=== PATIENT | female | born 1950 | race Caucasian/White ===

== ENCOUNTER 2019-03-10 05:22 | Inpatient (IN) ==
--- NOTE | 2019-02-06 12:32 | Anesthesiology Consultation ---
Date of Service February 06, 2019 Assessment & Plan (1) Encounter for pre-operative examination: Chart Review Chart Review: Acceptable Risk for Surgery (pending preop testing (labs, EKG, CXR)) and Patient seen in Pre Admission Testing Teaching & Discussion Pre-Anesthesia Teaching/Discussion Notes: Instructed NPO after midnight before surgery,except medications with 15 cc of water. Medication instructions provided according to the PAT guidelines. History Surgery Operation Date: 03/10/19 08:50 Proposed Procedures p Right Total Hip Replacement - Chong Wood MD Height/Weight Height: 5 ft 1 in Weight: 77.1 kg Allergies Allergy/AdvReac Type Severity Reaction Status Date / Time No Known Allergies Allergy Unverified 02/06/19 12:39 Medications Home Medications Medication Instructions Recorded Confirmed Last Taken Cbd Oil 1 dose DAILY 01/30/19 01/30/19 Unknown Formula Italo 1 dose DAILY 01/30/19 01/30/19 Unknown atenolol 25 mg PO QPM 01/30/19 01/30/19 01/29/19 calcium carbonate-vitamin D3 1 cap PO QPM 01/30/19 01/30/19 01/29/19 [Calcium 600 + D(3)] celecoxib [Celebrex] 200 mg PO QAM 01/30/19 01/30/19 01/30/19 cranberry 500 mg PO BID 01/30/19 01/30/19 Unknown fluticasone propionate [Flonase 2 spray INTRANASAL QAM 01/30/19 01/30/19 01/30/19 Allergy Relief] [id number]-kde-D-isac-herbal 21 1 tab PO QAM 01/30/19 01/30/19 01/30/19 [Glucosamine-MSM Complex] hydroxyzine HCl 50 mg PO HS PRN 01/30/19 01/30/19 Unknown ibuprofen 600 mg PO UD PRN 01/30/19 01/30/19 Unknown loratadine 10 mg PO UD PRN 01/30/19 01/30/19 Unknown lutein 25 mg PO DAILY 01/30/19 01/30/19 Unknown multivitamin 1 cap PO QAM 01/30/19 01/30/19 Unknown paroxetine HCl 10 mg PO QPM 01/30/19 01/30/19 01/29/19 psyllium seed (sugar) [Metamucil 1 tbsp PO UD PRN 01/30/19 01/30/19 Unknown (sugar)] red yeast rice 600 mg PO BID 01/30/19 01/30/19 Unknown turmeric 500 mg PO BID 01/30/19 01/30/19 Unknown Past Medical History Medical History Arthritis cervical History of recurrent UTI (urinary tract infection) recent UTI; symptoms now resolved on abx (to be completed prior to surgery) Hot flashes Hyperlipidemia Hypertension Obesity Exercise / Class Metabolic Activity III < 4 Walking/Shop/Light housework Past Surgical History Surgical History History of colonoscopy History of hammer toe correction History of hernia surgery History of lumpectomy of left breast History of lumpectomy of right breast History of total left hip replacement History of uterine fibroid S/P EXCISION Status post club foot correction at X3 Past Anesthesia History No Hx of Anesthesia Complications and No Family Hx of Anesthesia Complications History of PONV No Hx of PONV and No Hx of Motion Sickness Social History Smoking Status: Never smoker Do You Dip or Chew Tobacco: No Hx Alcohol Use: No Hx Substance Use: Yes Last Used Substance Other:: OTC CBD oil PRN arthritis Review of Systems Patient denies chest pain, shortness of breath, reflux, cough, wheezing, palpitations. Physical Exam Vital Signs VITALS BP 143/84 P 70 TEMP 97.4 SP02 99%RA RESP 18 PHYSICAL Full neck and c-spine range of motion. Full TMJ range of motion. TMD 3 finger breaths Mallampati Score 2 Dentition: intact, upper front crown Lungs: clear throughout to auscultation Cardiac: regular rate and rhythm, no murmurs noted Spine: normal Carotid arteries: negative bruit Extremities: no edema Testing Laboratory Results 01/22/19 SODIUM 134 POTASSIUM 4.7 CHLORIDE 96 CO2 26 BUN 8 CREATININE 0.7 GLUCOSE 87
--- NOTE | 2019-02-06 12:36 | PAT Medication Instructions ---
Medication Instructions Date of Service February 06, 2019 Home Medications Cbd Oil 1 dose DAILY Formula Italo 1 dose DAILY atenolol 25 mg PO QPM calcium carbonate-vitamin D3 [Calcium 600 + D(3)] 1 cap PO QPM celecoxib [Celebrex] 200 mg PO QAM cranberry 500 mg PO BID fluticasone propionate [Flonase Allergy Relief] 2 spray INTRANASAL QAM hngijsfrk-rwc-B-isac-herbal 21 [Glucosamine-MSM Complex] 1 tab PO QAM hydroxyzine HCl 50 mg PO HS PRN ibuprofen 600 mg PO UD PRN loratadine 10 mg PO UD PRN lutein 25 mg PO DAILY multivitamin 1 cap PO QAM paroxetine HCl 10 mg PO QPM psyllium seed (sugar) [Metamucil (sugar)] 1 tbsp PO UD PRN red yeast rice 600 mg PO BID turmeric 500 mg PO BID ASK your surgeon for instructions celecoxib [Celebrex] 200 mg PO QAM ibuprofen 600 mg PO UD PRN STOP taking 2 weeks before surgery (or as soon as possible if surgery is within 2 weeks) cranberry 500 mg PO BID qxcoplztn-vfd-T-isac-herbal 21 [Glucosamine-MSM Complex] 1 tab PO QAM lutein 25 mg PO DAILY red yeast rice 600 mg PO BID turmeric 500 mg PO BID DO NOT take the morning of surgery Cbd Oil 1 dose DAILY Formula Italo 1 dose DAILY loratadine 10 mg PO UD PRN multivitamin 1 cap PO QAM Take morning of surgery With a small sip of water, OTHERWISE NOTHING TO EAT OR DRINK AFTER MIDNIGHT: fluticasone propionate [Flonase Allergy Relief] 2 spray INTRANASAL QAM Take evening before surgery atenolol 25 mg PO QPM calcium carbonate-vitamin D3 [Calcium 600 + D(3)] 1 cap PO QPM hydroxyzine HCl 50 mg PO HS PRN (if needed) paroxetine HCl 10 mg PO QPM Other Notes If you have any questions please call us at [phone] or [phone] or [phone] or [phone]
--- NOTE | 2019-02-06 13:09 | XRay Report ---
XR chest Pre-admission PA/Lat CLINICAL HISTORY: PAT preoperative evaluation COMPARISON STUDY: No previous studies for comparison. FINDINGS: The bones soft tissues and hemidiaphragms are normal. The cardiomediastinal silhouette is n ormal. The lungs are clear. The pulmonary vasculature is normal. IMPRESSION: Negative chest. The above report was generated using voice recognition software. It may contain grammatical, syntax or spelling errors. Electronically signed by: Isai Lewis M.D. 02/06/2019 1:08 PM
[2019-02-06 14:05] LABS: Basophils # (auto) 0.04 K/uL (0-0.2); Basophils % (auto) 0.6 %; Eosinophils # (auto) 0.07 K/uL (0-0.5); Eosinophils % (auto) 1.1 %; Hematocrit (blood only) 39.3 % (37-47); Hemoglobin 13.3 g/dL (12.0-16.0); Immature Granulocytes # (auto) 0.01 K/uL (0.00-0.02); Immature Granulocytes % (auto) 0.2 %; Lymphocytes # (auto) 1.81 K/uL (1.2-3.4); Lymphocytes % (auto) 28.8 %; Mean Corpuscular Hemoglobin 29.7 pg (25-34); Mean Corpuscular Hgb Conc 33.8 g/dL (32-36); Mean Corpuscular Volume 87.7 fL (80-100); Mean Platelet Volume 10.1 fL (7.4-10.4); Monocytes # (auto) 0.64 K/uL (0.11-0.59); Monocytes % (auto) 10.2 %; Neutrophils # (auto) 3.71 K/uL (1.4-6.5); Neutrophils % (auto) 59.1 %; Platelet Count 188 K/uL (130-400); RDW Coefficient of Variation 14.4 % (11.5-14.5); RDW Standard Deviation 46.3 fL (36.4-46.3); Red Blood Count 4.48 M/uL (4.2-5.4); White Blood Count 6.28 K/uL (4.8-10.8)
[2019-02-06 14:37] LABS: Partial Thromboplastin Time 26.3 Seconds (21.0-31.0); Prothrombin Time 10.6 Seconds (9.0-12.0)
--- NOTE | 2019-03-05 21:45 | History and Physical Report ---
DATE OF ADMISSION: 03/10/2019 CHIEF COMPLAINT: Persistent right hip pain and discomfort. HISTORY OF PRESENT ILLNESS: The patient is a 68-year-old female who presents for surgical treatment of her right hip. She has a history of left hip replacement done in 2009. She has done pretty well from this. She continues to be bothered by right hip pain and discomfort. She describes it has gotten worse over time. She describes groin pain, thigh pain. It radiates down from her hip area to her thigh. The more she walks, the more it hurts. It started to really limiting her activities. She would like to do more traveling, but unable to do so due to pain. X-rays show progressive hip arthritis and she elected to proceed with surgical treatment. PAST MEDICAL HISTORY: 1. Hypertension. 2. Asthma. 3. Chronic back pain. 4. Mild obesity with BMI of 32. PAST SURGICAL HISTORY: Includes: 1. Club foot surgery. 2. Fibroids. 3. Herniorrhaphy. 4. Breast surgery/benign. 5. Left total hip replacement done on 02/01/2010. ALLERGIES: None. CURRENT MEDICATIONS: Include 1. Hydroxyzine. 2. Atenolol 25 mg. 3. Paroxetine. SOCIAL HISTORY: A 68-year-old female patient from [place]. She is . Does not smoke. No significant alcohol intake. FAMILY HISTORY: Noncontributory. REVIEW OF HISTORY: Negative for diabetes, neurologic problems, vascular problems, bleeding disorders. She does have some chronic back pain. No chest pain or shortness of breath. No history of DVT or PE. No known bleeding problems. PHYSICAL EXAMINATION: GENERAL: Shows a healthy, pleasant middle-aged female who looks to be in pretty good health. HEENT: Benign. NECK: Supple, no lymphadenopathy. LUNGS: Clear to auscultation. HEART: Regular rate and rhythm. ABDOMEN: Soft, nontender, nondistended. EXTREMITIES: Grossly neurovascularly intact except as follows. Examination of the right hip reveals the patient walks with just a slight bit of a limp. She has about 0.5 cm short on the right compared to the left. She can internally rotate to about 20 degrees with pain. Negative straight leg raise. She is neurologically intact. X-RAYS: Of the right hip were reviewed. Shows advanced right hip DJD. She has complete loss of her superior joint space. This has changed significantly over the past year. ASSESSMENT: A 68-year-old female 10 years out from a left hip replacement with advanced right hip degenerative joint disease. It has gotten significantly worse over the past year, both clinically and radiographically. She would like to have her hip fixed. PLAN: We will take her to the operating room and do right total hip replacement. The risks and benefits of this procedure were explained to the patient including but not limited to DVT, PE, , infection, neurological injury, vascular injury, bleeding problem, pain, limited range of motion, stiffness, failure to relieve symptoms, incomplete relief of symptoms, need for further surgery in future, fracture, leg length inequality, nerve palsy, incomplete relief of symptoms, etc. The patient understands and desires to proceed. Informed consent was obtained. She is planning to be discharged home using [facility] home health program.
[2019-03-10] MEDS ORDERED: METOCLOPRAMIDE HCL 10 MG TABLET PO SCH (06:00)
[2019-03-10] MEDS ORDERED: LR 60ML/HR IV SCH (06:00)
[2019-03-10] MEDS ORDERED: GABAPENTIN 300 MG CAP PO SCH (06:00)
[2019-03-10] MEDS ORDERED: CEFAZOLIN 2000MG 2,000 MG/15 ML SYR IV SCH (06:00)
[2019-03-10] MEDS ORDERED: FAMOTIDINE 20 MG TAB PO SCH (06:00)
[2019-03-10] MEDS ORDERED: ACETAMINOPHEN 500 MG TAB PO SCH (06:00)
[2019-03-10] MEDS ORDERED: LR 500ML BOLUS, THEN 15ML/HR IV SCH (06:00)
[2019-03-10] MEDS ORDERED: BUPIVACAINE 0.5 % 5 MG/1 ML PF 10ML VIAL ONE (06:24)
[2019-03-10] MEDS ORDERED: MIDAZOLAM HCL 1 MG/ML 2ML VIAL ONE ×3 (06:33→07:24)
[2019-03-10] MEDS ORDERED: fentaNYL citrate 100 MCG/2 ML VIAL ONE (06:33)
[2019-03-10] MEDS ORDERED: MoRPHine SULFATE PF 1 MG/ML 10 ML AMP/VIAL ONE (06:33)
--- NOTE | 2019-03-10 06:54 | History & Physical Bridge Note ---
Date of Service March 10, 2019 History & Physical Bridge Note I have examined the patient, reviewed the History & Physical and in the interval since the performance of the History & Physical I have noted the following changes of clinical significance: no changes noted
[2019-03-10] MEDS ORDERED: TRANEXAMIC ACID 1,000 MG in 0.9 % SODIUM CHLORIDE 100 ML IV STA (07:07)
[2019-03-10] MEDS ORDERED: ONDANSETRON INJ 2 MG/ML 2 ML VIAL IV PRN ×2 (07:17→10:00)
[2019-03-10] MEDS ORDERED: PHENYLEPHRINE 100MCG/ML 5ML SYR IV PRN (07:17)
[2019-03-10] MEDS ORDERED: LABETALOL HCL IV 5 MG/ML 20ML IV PRN (07:17)
[2019-03-10] MEDS ORDERED: ATROPINE SULFATE 0.1 MG/ML 10ML SYR IV PRN (07:17)
[2019-03-10] MEDS ORDERED: fentaNYL citrate 100 MCG/2 ML VIAL IV PRN (07:17)
[2019-03-10] MEDS ORDERED: ePHEDrine sulfate 50 MG/ML AMP IV PRN (07:17)
[2019-03-10] MEDS ORDERED: PROPOFOL IV EMULSION 10 MG/ML 20 ML VIAL IV ONE (07:25)
[2019-03-10] MEDS ORDERED: KETAMINE HCL INJ 50 MG/ML 10 ML VIAL ONE (07:31)
[2019-03-10] MEDS: BACITRACIN INJ 50,000 UNIT VIAL ONE (07:43)
[2019-03-10] MEDS: BUPIVACAINE/EPINEPHRINE 0.5% MPF 1:200,000 30 ML VIAL ONE (07:44)
[2019-03-10] MEDS ORDERED: PHENYLEPHRINE HCL 10 MG/ML VIAL ONE (07:51)
--- NOTE | 2019-03-10 08:42 | Post Operative Brief Note ---
PG Immediate Post Op with CF Date of Surgery March 10, 2019 Pre & Post Diagnosis Operation Date: 03/10/19 07:00 Pre-Op Diagnosis: Right Hip Advanced Degenerative Joint Disease Post-Op Diagnosis: Right Hip Advanced Degenerative Joint Disease Procedure Operation Date: 03/10/19 07:00 Actual Procedures p Right Total Hip Arthroplasty--Uncemented(Right) - Chong Wood MD Surgeon Chong Wood MD Vrt Mechanic Aisha, PAC Estimated Blood Loss 200 Findings Consistent with Post-Op Diagnosis Fluids 1000 cc Specimens Specimen Description: A. Right Femoral Head Drains Carney Catheter (A 16 Ecu[place]orean carney catheter was inserted by LLOYD Weaver, without difficulty, clear yellow urine obtained, output to be monitored by Anesthesia.) Anesthesia Type Spinal MAC Complications none Disposition Accompanied Patient To Recovery: Yes Disposition: Recovery Room
--- NOTE | 2019-03-10 09:28 | Anesthesiology Progress Note ---
Date of Service March 10, 2019 Anesthesia Post Procedure Vital Signs Vital Signs: Temp Pulse Pulse Resp BP Pulse Ox 03/10/19 09:20 67 12 112/60 100 03/10/19 09:10 67 12 121/66 100 03/10/19 09:00 73 12 107/62 100 03/10/19 08:50 71 12 122/65 100 03/10/19 08:43 36.0 C L 73 12 118/51 L 95 03/10/19 05:39 36.4 C L 73 18 162/82 H 99 Transfer of Care Handoff Completed per policy Notes Mental Status: alert / awake / arousable Patient Amnestic to Procedure: Yes Nausea / Vomiting: adequately controlled Pain: adequately controlled Airway Patency, RR, SpO2: stable & adequate BP & HR: stable & adequate Hydration State: stable & adequate Neuraxial Anesthesia: was administered and sensory block is resolving Anesthetic Complications: no major complications apparent and Pt Satisfied with anesthetic care
--- NOTE | 2019-03-10 09:36 | Operative Report ---
DATE OF OPERATION: 03/10/2019 SURGEON: Chong Wood MD. BUSHING PRESS OPERATOR: LLOYD Peralta. PREOPERATIVE DIAGNOSIS: Right hip degenerative joint disease. POSTOPERATIVE DIAGNOSIS: Right hip degenerative joint disease. PROCEDURE PERFORMED: Right uncemented ceramic on highly cross-linked polyethylene total hip arthroplasty. COMPLICATIONS: None. ESTIMATED BLOOD LOSS: 200 mL. FLUID REPLACEMENT: 1000 mL of crystalloid fluid replacement. ANESTHESIA: Spinal. DRAINS: None. SPECIMENS: Right femoral head sent for pathology. OPERATIVE INDICATIONS: The patient is a 68-year-old female who is well known to me from previous left hip replacement done 9 years ago. Over the past year, she has developed increased pain and discomfort in her right hip. She has had a couple episodes where she had trouble even getting around. Symptoms kind of waxed and waned. X-rays over the past year showed progressive hip arthritis with loss of her joint space. She elected to proceed with surgical treatment. OPERATIVE FINDINGS: Revealed advanced right hip DJD. She had extensive cartilage loss in the femoral head, but not much in the way of osteophytes. Moderate-sized joint effusion. Moderate synovitis. OPERATIVE IMPLANTS: Consisted of: 1. Biomet G7 size 50 mm acetabular shell. 2. A 6.5 cancellous acetabular screws, one at 35 mm length and one at 25 mm length. 3. An apex hole eliminator. 4. A highly cross-linked polyethylene liner with 50 mm outer diameter and 32 mm inner diameter. 5. DePuy Corail size 10 KLA femoral stem. 6. A +5/32 mm ceramic articular ball. OPERATIVE PROCEDURE: The patient was taken to the operating room, identified and placed on the operating table in supine position. All contact areas were appropriately padded. IV antibiotics were provided by anesthesia team. A spinal anesthetic had been implemented in the holding area. Ruff catheter was placed in sterile fashion. The patient was then placed in the left lateral decubitus position. An axillary roll was placed. Stlberg hip positioner was used for positioning. The right hip and leg were then prepped and draped in usual sterile fashion. A posterolateral approach to the right hip was then performed through a curvilinear incision centered over the greater trochanter. Subcutaneous tissue envelope was quite thick. Sharp dissection was carried through the subcutaneous tissues down to the level of the IT band and gluteal fascia. The IT band and gluteal fascia were then incised longitudinally in line with skin incision. The underlying greater trochanteric bursa was excised. The piriformis and external rotators were tagged and taken off the posterior aspect of the hip joint capsule. Great care was taken throughout the procedure to protect the sciatic nerve at all times. Posterior capsulotomy was then performed leaving a large flap for later repair. Hip was internally rotated and dislocated. Femoral neck osteotomy cut was made with the final cut about 10 mm above the lesser trochanter. Femoral head was removed and sent for pathology. The femur was retracted anteriorly. Attention was then drawn to the acetabulum. The acetabular labrum was excised. The pulvinar fat was excised. Sequential reaming of the acetabulum was then performed beginning with a size 43 and progressing up to 49. I did just touch the outer edge with a 50 reamer. I then went to place a 50 mm cup. I could not get it to seat the whole way down to good interference fit. Therefore, I reamed again with a 49 reamer and then placed the cup. We got good interference fit. I placed this in about 40 degrees of lateral opening and 20 degrees of anteversion. It was fixed with two 6.5 cancellous acetabular screws. There were no osteophytes to remove. A trial liner was placed. Attention was then drawn to the femur. The proximal femur was entered with cookie cutter followed by canal finder. I broached beginning with a size 8 and progressed to a 10. I could not quite get the 10 down to the calcar cut. We got good fit with this. It had good rotational stability. I then trialed the hip. I tried both the standard and the KLA stem. I felt the standard stem may have lengthened her a bit, so we used the KLA stem in order to maximize stability and soft tissue tension without lengthening her leg. I used a +5 articular ball. The hip was fully stable in full extension and external rotation and flexion to 90 degrees, internal rotation to 60 plus degrees. I elected to place these implants. All trial implants were removed. An apex hole eliminator was placed. A highly cross-linked polyethylene liner was placed. A DePuy Corail size 10 KLA femoral stem was impacted in position. We left this about 2 mm proud. The +5/32 mm ceramic articular ball was placed. Hip was located and once again found to be stable. Attention was then drawn toward closing. The wound was irrigated with copious amounts of pulsatile lavage solution. I did inject locally with 60 mL of 0.5% Marcaine with epinephrine. The posterior capsule and external rotators were then repaired through drill holes in the posterior trochanter with #2 Ti-Cron suture. The IT band and gluteal fascia were then closed with #1 PDS suture in running fashion. Subcutaneous tissues were closed in 2 layers, the deep layer with #2 Vicryl suture and subcutaneous tissue with 2-0 Dexon suture in a buried interrupted fashion. Skin was closed with skin august. Leg was then cleaned, dried and a sterile dressing of Xeroform, 4 x 4, sterile ABD pad and foam tape was applied. The patient was then transferred to the recovery room in stable condition. The patient tolerated the procedure well with no complications. All needle and sponge counts were correct at the end of the operation. I attest to the content of the Intraoperative Record and any orders documented therein. Any exception s are noted below.
--- NOTE | 2019-03-10 09:51 | XRay Report ---
SINGLE VIEW PELVIS; 2 VIEWS RIGHT HIP CLINICAL HISTORY: Postoperative examination. FINDINGS: An AP portable view of the hips and pelvis with AP and crosstable lateral portable view of the right hip are obtained. A bipolar right hip arthroplasty is in near-anatomic alignment. At least 2 cortical lag screws transfix the acetabular cup. No acute fracture is identified. There are expecte d postoperative changes overlying the right hip including skin clips, subcutaneous gas, and soft tiss ue swelling. A left hip arthroplasty is also in place. IMPRESSION: Expected postoperative findings status post right hip arthroplasty. No acute fracture is seen. Electronically signed by: Bright Dejesus M.D. 03/10/2019 9:50 AM
[2019-03-10] MEDS ORDERED: bisacodyL 10 MG SUPP PR PRN (10:00)
[2019-03-10] MEDS ORDERED: LORATADINE 10 MG TAB PO PRN (10:00)
[2019-03-10] MEDS ORDERED: LUTEIN 25 MG PO SCH (10:00)
[2019-03-10] MEDS ORDERED: NON-FORMULARY MEDICATION (Turmeric 500 MG) PO SCH (10:00)
[2019-03-10] MEDS ORDERED: ALUMINUM/MAGNESIUM SUSP 30 ML UDC PO PRN (10:00)
[2019-03-10] MEDS ORDERED: NON-FORMULARY MEDICATION (Red Yeast Rice 600 MG) PO SCH (10:00)
[2019-03-10] MEDS ORDERED: NON-FORMULARY MEDICATION (Cranberry 500 MG) PO SCH (10:00)
[2019-03-10] MEDS ORDERED: NALOXONE HCL 0.4 MG/1 ML VIAL/CARP IV PRN (10:00)
[2019-03-10] MEDS ORDERED: METOCLOPRAMIDE HCL INJ 5 MG/ML 2 ML VIAL IV PRN (10:00)
[2019-03-10] MEDS ORDERED: [UNRECOGNIZED DRUG - OTHER] SCH (10:00)
[2019-03-10] MEDS ORDERED: NON-FORMULARY MEDICATION (Multivitamin 1 CAP) PO SCH (10:00)
[2019-03-10] MEDS ORDERED: NON-FORMULARY MEDICATION (Cbd Oil 1 EA) SCH (10:00)
[2019-03-10] MEDS ORDERED: [UNRECOGNIZED DRUG - OTHER] PO SCH (10:00)
[2019-03-10] MEDS ORDERED: PSYLLIUM 58.6% POWDER PACKET PO PRN (10:00)
[2019-03-10] MEDS ORDERED: MAGNESIUM HYDROXIDE SUSP 30 ML UDC PO PRN (10:00)
[2019-03-10] MEDS ORDERED: HYDROmorphone INJ 0.5 MG/0.5 ML SYR IV PRN (10:00)
[2019-03-10] MEDS: DOCUSATE SODIUM 100 MG CAP PO SCH ×2 (11:13→20:42)
[2019-03-10] MEDS: SODIUM CHLORIDE 0.9% 1000ML 1,000 ML IV SCH ×2 (11:13→23:14)
[2019-03-10] MEDS: FLUTICASONE PROPIONATE NA SPR 16 GM BTL SCH (11:14)
[2019-03-10] MEDS: ASPIRIN 81 MG ECTAB PO SCH ×2 (11:14→20:42)
[2019-03-10] MEDS: MULTIVITAMIN TAB PO SCH (11:15)
[2019-03-10] MEDS: CEFAZOLIN 1000MG 1,000 MG/7.5 ML SYR IV SCH ×2 (11:16→19:37)
[2019-03-10] MEDS: KETOROLAC TROMETHAMINE 15 MG/ML VIAL IV SCH ×3 (11:23→21:17)
[2019-03-10] MEDS: ACETAMINOPHEN 500 MG TAB PO SCH ×2 (13:57→21:17)
--- NOTE | 2019-03-10 13:58 | Progress Note ---
DATE: 03/10/2019 SUBJECTIVE: A 68-year-old female postop from a right hip replacement. She is doing pretty well. Rates her pain at about 1. No chest pain or shortness of breath. Not feeling dizzy or lightheaded. OBJECTIVE: VITAL SIGNS: Temperature 37.7. Vital signs stable. GENERAL: Shows a pleasant, middle-aged female. She is sitting up in bed and talking to her son and looks pretty comfortable. LUNGS: Clear to auscultation. HEART: Has a regular rate and rhythm. ABDOMEN: Soft, nontender, nondistended. EXTREMITIES: Grossly neurovascularly intact except as follows: Examination of the right leg reveals leg lengths to be equal. Hip is located. She can dorsiflex and plantarflex her foot appropriately. Dressing is clean, dry and intact. She is neurologically intact. X-RAYS: X-ray of the right hip from recovery room is reviewed. It shows right uncemented total hip arthroplasty. Components looked to be in good position. No signs of problems. ASSESSMENT: A 68-year-old female postoperative from a right total hip replacement, doing well. Her hip is located. Pain is controlled. She is neurologically intact. PLAN: 1. DVT prophylaxis including thigh-high TEDs, SCDs, and aspirin twice a day. 2. PT/OT. Weight bear as tolerated. Right total hip protocol. 3. Pain control, doing pretty well with current pain regimen. 4. IV antibiotics x24 hours. 5. Disposition: Plan to discharge to home with some home health once adequately recovered and stable.
[2019-03-10] MEDS ORDERED: TRANEXAMIC ACID 1,000 MG in 0.9 % SODIUM CHLORIDE 100 ML IV SCH (15:00)
[2019-03-10] MEDS ORDERED: INFLUENZA ADMINISTRATION CHARGE ONE (15:15)
[2019-03-10] MEDS ORDERED: INFLUENZA VACCINE HIGH DOSE 65+ 0.5 ML SYR IM ONE (15:15)
[2019-03-10] MEDS: ASCORBIC ACID 500 MG TAB PO SCH (18:13)
[2019-03-10] MEDS: FERROUS GLUCONATE 324 MG TAB PO SCH (18:13)
[2019-03-10] MEDS: ATENOLOL 25 MG TABLET PO SCH (20:42)
[2019-03-10] MEDS: SENNA 8.6 MG TAB PO SCH (20:42)
[2019-03-10] MEDS: CALCIUM 600MG + VIT D 400 IU TAB PO SCH (20:43)
[2019-03-10] MEDS: PARoxetine HCl 10 MG TAB PO SCH (20:43)
[2019-03-10] MEDS: TRAMADOL HCL 50 MG TABLET PO PRN (21:43)
[2019-03-11] MEDS: TRAMADOL HCL 50 MG TABLET PO PRN ×3 (03:26→17:44)
[2019-03-11] MEDS: ACETAMINOPHEN 500 MG TAB PO SCH ×3 (05:03→21:27)
[2019-03-11] MEDS: KETOROLAC TROMETHAMINE 15 MG/ML VIAL IV SCH ×4 (05:03→21:25)
[2019-03-11 06:01] LABS: Basophils # (auto) 0.03 K/uL (0-0.2); Basophils % (auto) 0.5 %; Eosinophils # (auto) 0.03 K/uL (0-0.5); Eosinophils % (auto) 0.5 %; Hematocrit (blood only) 33.3 % (37-47); Hemoglobin 11.1 g/dL (12.0-16.0); Immature Granulocytes # (auto) 0.01 K/uL (0.00-0.02); Immature Granulocytes % (auto) 0.2 %; Lymphocytes # (auto) 1.22 K/uL (1.2-3.4); Lymphocytes % (auto) 20.8 %; Mean Corpuscular Hemoglobin 29.8 pg (25-34); Mean Corpuscular Hgb Conc 33.3 g/dL (32-36); Mean Corpuscular Volume 89.3 fL (80-100); Mean Platelet Volume 9.6 fL (7.4-10.4); Monocytes # (auto) 0.77 K/uL (0.11-0.59); Monocytes % (auto) 13.1 %; Neutrophils % (auto) 64.9 %; Platelet Count 116 K/uL (130-400); RDW Coefficient of Variation 14.4 % (11.5-14.5); RDW Standard Deviation 47.2 fL (36.4-46.3); Red Blood Count 3.73 M/uL (4.2-5.4); White Blood Count 5.86 K/uL (4.8-10.8)
[2019-03-11 06:36] LABS: BUN Creatinine Ratio 15.9 (10-20); Calcium 8.5 mg/dl (8.5-10.1); Creatinine Clr Calc Pharmacy 76.4 ml/min; Est GFR (African American) 104.8; Est GFR (Non-African American) 90.4; Potassium 3.9 mmol/L (3.5-5.1)
[2019-03-11] MEDS: ASCORBIC ACID 500 MG TAB PO SCH ×2 (08:46→17:45)
[2019-03-11] MEDS: FERROUS GLUCONATE 324 MG TAB PO SCH ×2 (08:46→17:45)
[2019-03-11] MEDS: FLUTICASONE PROPIONATE NA SPR 16 GM BTL SCH (08:47)
[2019-03-11] MEDS: MULTIVITAMIN TAB PO SCH (08:47)
[2019-03-11] MEDS: DOCUSATE SODIUM 100 MG CAP PO SCH ×2 (08:47→21:21)
[2019-03-11] MEDS: ASPIRIN 81 MG ECTAB PO SCH ×2 (08:47→21:21)
--- NOTE | 2019-03-11 14:55 | Progress Note ---
DATE: 03/11/2019 SUBJECTIVE: A 68-year-old female postop day 1 from right hip replacement. She is doing pretty well today. She had quite a bit of pain last night as she was trying to hold off on pain meds. She has taken some pain medications and doing pretty well with that. No chest pain or shortness of breath. Therapy went pretty well. Not feeling dizzy or lightheaded. OBJECTIVE: VITAL SIGNS: Temperature 36.4. Vital signs stable. GENERAL: Shows a pleasant, middle-aged female. She is lying in bed, looks quite comfortable. EXTREMITIES: Examination of the right hip reveals the leg to be well aligned. Dressing is clean, dry and intact. Thigh is soft and supple. She is neurologically intact. LABORATORY DATA: Hemoglobin is 11.1. Hematocrit 33.3. Electrolytes are stable. ASSESSMENT: A 68-year-old female postop day 1 from right hip replacement, doing well. Pain is reasonably well controlled. Hip is located. She is neurologically intact. She is slightly anemic, but without symptoms. PLAN: 1. DVT prophylaxis including thigh-high TEDs, SCDs, and aspirin twice a day. 2. PT/OT. Weight bear as tolerated. Right total hip protocol. 3. Pain control, doing pretty well with current pain regimen. She is encouraged to take pain meds if she needs it. 4. Anemia. Currently, asymptomatic. We will continue iron supplementation. It is unlikely she will need anything more. 5. Disposition: Plan to discharge to home with some home health once adequately recovered and medically stable.
[2019-03-11] MEDS: SENNA 8.6 MG TAB PO SCH (21:21)
[2019-03-11] MEDS: ATENOLOL 25 MG TABLET PO SCH (21:21)
[2019-03-11] MEDS: CALCIUM 600MG + VIT D 400 IU TAB PO SCH (21:21)
[2019-03-11] MEDS: PARoxetine HCl 10 MG TAB PO SCH (21:23)
[2019-03-12] MEDS: ACETAMINOPHEN 500 MG TAB PO SCH (05:15)
[2019-03-12] MEDS: KETOROLAC TROMETHAMINE 15 MG/ML VIAL IV SCH (05:18)
[2019-03-12 08:04] VITALS: BP 114/72; TEMP 98.4; O2SAT 94
--- NOTE | 2019-03-12 08:32 | Progress Note ---
DATE: 03/12/2019 SUBJECTIVE: A 68-year-old female postop day 2 from right hip replacement. She is doing pretty well. Had a better night. Pain is controlled. No chest pain or shortness of breath. Not feeling dizzy or lightheaded. OBJECTIVE: VITAL SIGNS: Temperature 37.0. Vital signs stable. GENERAL: Physical examination shows a pleasant, middle-aged female. She is lying in bed, looks quite comfortable. EXTREMITIES: Examination of the right leg reveals the leg to be well aligned. Dressing is clean, dry and intact. Thigh is soft and supple. She can dorsiflex and plantarflex her foot appropriately. ASSESSMENT: A 68-year-old female postop day 2 from right hip replacement, doing pretty well. Pain is controlled. Hip is located. She is neurologically intact. PLAN: 1. DVT prophylaxis including thigh-high TEDs, SCDs, and aspirin twice a day. 2. PT/OT. Weight bear as tolerated. Right total hip protocol. 3. Pain control, doing well with current pain regimen. 4. Disposition: Plan to discharge to home with some home health later today.
[2019-03-12] MEDS: FERROUS GLUCONATE 324 MG TAB PO SCH (08:53)
[2019-03-12] MEDS: FLUTICASONE PROPIONATE NA SPR 16 GM BTL SCH (08:54)
[2019-03-12] MEDS: ASCORBIC ACID 500 MG TAB PO SCH (08:54)
[2019-03-12] MEDS: ASPIRIN 81 MG ECTAB PO SCH (08:54)
[2019-03-12] MEDS: MULTIVITAMIN TAB PO SCH (08:54)
[2019-03-12] MEDS: DOCUSATE SODIUM 100 MG CAP PO SCH (08:54)
[2019-03-12] MEDS: TRAMADOL HCL 50 MG TABLET PO PRN (08:56)
[2019-03-12 09:13] VITALS: PULSE 66
--- NOTE | 2019-03-17 11:44 | Discharge Summary ---
ADMITTING PHYSICIAN AND SURGEON: Dr. Chong Wood. ADMITTING DIAGNOSIS: Right hip degenerative joint disease. SURGERY PERFORMED: Right total hip arthroplasty. SECONDARY DIAGNOSES: Hypertension, asthma, chronic back pain, mild obesity. CONSULTS: None obtained. HISTORY AND PHYSICAL EXAMINATION: Well documented in the patient's chart. HOSPITAL COURSE: The patient was admitted on 03/10/2019 underwent total hip arthroplasty, tolerated the procedure well. There were no complications. She was transferred to the PACU postoperatively and later to the orthopedic for further care. She was given Ancef for antibiotic prophylaxis, NATALYA stockings, SCDs and aspirin for DVT prophylaxis. Hemoglobin, hematocrit and vital signs were monitored during her hospital stay and remained stable. She did not require any blood transfusions. She did receive an iron supplement during the hospital stay. There were no complications. By postoperative day 2, she was tolerating a regular diet, pain was controlled with oral pain medicine. She was participating in physical therapy. Postop day 2, she was discharged home. She was set up with home health services. She was given printed discharge instructions as well as new prescriptions for extra strength Tylenol, aspirin, iron supplement and tramadol. Continue her home medicines. Continue physical therapy, weightbearing as tolerated, NATALYA stockings, total hip precautions. Follow up approximately 2 weeks postop or sooner if there are any problems or concerns.
== END 2019-03-12 13:21 | disposition home health service (06) | DRG 470 ==
LOC: ASU 05:22 → 3E 08:46